=== PATIENT | male | born 1965 | race Caucasian/White ===

== ENCOUNTER 2019-01-13 13:11 | Emergency (ER) | payer OTHER ==
[~2019-01-13] VITALS: Ht 175.3 cm; Wt 74.8 kg
[2019-01-13 14:16] LABS: ANION GAP 10 mmol/L (7-16); BUN 18 mg/dL (7-18); CALCIUM 9.4 mg/dL (8.5-10.1); CHLORIDE 100 mmol/L (98-107); CO2 27 mmol/L (21-32); CREATININE 1.2 mg/dL (0.7-1.3); GLUCOSE 237 mg/dL (74-106); POTASSIUM 3.4 mmol/L (3.5-5.1); SODIUM 137 mmol/L (136-145)
[2019-01-13 14:20] LABS: HEMATOCRIT 43.4 % (42.0-52.0); HEMOGLOBIN 14.9 gm/dL (14.0-18.0); MCH 29.1 pg (26.0-34.0); MCHC 34.3 g/dL (28.0-37.0); RBC 5.11 mil/uL (4.50-6.00); RDW 12.3 % (10.5-14.5); WBC 6.1 thou/uL (4.0-11.0)
[2019-01-13 14:24] LABS: DIRECT BILIRUBIN 0.1 mg/dL (<0.1-0.3); SGOT 27 U/L (15-37); SGPT 35 U/L (30-65); TOTAL BILIRUBIN 0.6 mg/dL (<0.1-1.0); TOTAL PROTEIN 7.7 g/dL (6.4-8.2); TROPONIN-I <0.06 ng/mL (<0.06)
[2019-01-13 14:39] LABS: AMP/METHAMP POSITIVE (Negative); BARBITURATES Negative (Negative); BENZODIAZEPINES Negative (Negative); COCAINE Negative (Negative); METHADONE Negative (Negative); OPIATES Negative (Negative); PCP Negative (Negative)
[2019-01-13 15:06] VITALS: BP 126/74
--- NOTE | 2019-01-13 16:13 | EKG ---
[address] [address] ELECTROCARDIOGRAM REPORT Name: MELINA LAND Room #: DEP Demond#: [id number] ������������������ Admission: 01/13/19 ������������������ Attend Phys: Discharge: 01/13/19 ������������������ Date of : 61 Report #: [id number] ����������������������������������������������������������������� [id number] THIS REPORT FOR: //name// [facility] ED Test Date: 2019-01-13 Test Time: 14:10:22 Pat Name: MELINA LAND Department: Room: Gender: M Compliance Engineer: JULIET : 1965 Requested By: Jessica Zimmer Order Number: [id number] MD: Shay Martin Measurements Intervals [place] Rate: 86 P: 67 [place]: 170 QRS: 62 QRSD: 104 T: 14 QT: 374 QTc: 448 Interpretive Statements Sinus rhythm Borderline T abnormalities, anterior leads No previous ECG available for comparison Electronically Signed On 01-13-2019 16:13:08 CDT by Shay Martin [email or web address] ��������������������������������������������� <ELECTRONICALLY SIGNED> ���������������������������������������� By: Shay Martin MD ��������������������������������������������� 01/13/19 1613 1410 1410 MD MELISSA Holland
== END 2019-01-13 15:15 | disposition home or self-care (01) ==
LOC: ER 13:11
PROVIDERS: Emergency Medicine
DX: F15.10 Other stimulant abuse, uncomplicated (principal); R07.89 Other chest pain; F32.9 Major depressive disorder, single episode, unspecified; F41.9 Anxiety disorder, unspecified; F17.200 Nicotine dependence, unspecified, uncomplicated; Z91.048 Other nonmedicinal substance allergy status; Z88.2 Allergy status to sulfonamides; Z21 Asymptomatic human immunodeficiency virus [HIV] infection status

== ENCOUNTER 2020-07-11 07:01 | Emergency (ER) | payer OTHER ==
[~2020-07-11] VITALS: Ht 175.3 cm; Wt 79.4 kg
[2020-07-11 08:15] VITALS: BP 120/74
[2020-07-11] MEDS ORDERED: AUGMENTIN 875-1 EACH PO (08:16)
== END 2020-07-11 08:15 | disposition home or self-care (01) ==
LOC: ER 07:01
DX: L03.011 Cellulitis of right finger (principal); Z88.2 Allergy status to sulfonamides; Z91.048 Other nonmedicinal substance allergy status; Z21 Asymptomatic human immunodeficiency virus [HIV] infection status